=== PATIENT | male | born 1980 | race Caucasian/White ===

== ENCOUNTER 2018-02-09 10:25 | Emergency (ER) | payer OTHER ==
[~2018-02-09] VITALS: Ht 198.1 cm; Wt 108.9 kg
[2018-02-09 10:25] VITALS: BP_SYST 148
[2018-02-09] MEDS ORDERED: IPRATROPIUM/ALBUTEROL SULFATE 3 ML AMPUL.NEB ONE (10:52)
[2018-02-09] MEDS ORDERED: PREDNISONE 20 MG TABLET PO ONE (11:00)
[2018-02-09] MEDS ORDERED: IPRATROPIUM/ALBUTEROL SULFATE 3 ML AMPUL.NEB INH ONE (11:00)
[2018-02-09 11:34] VITALS: BP_SYST 134
== END 2018-02-09 11:34 | disposition home or self-care (01) ==
LOC: SED 10:25
DX: J45.901 Unspecified asthma with (acute) exacerbation (principal); R03.0 Elevated blood-pressure reading, without diagnosis of hypertension
CPT/HCPCS: 71045; 94640; 99283; J7512